=== PATIENT | female | born 1980 | race Caucasian/White ===

== ENCOUNTER 2020-02-27 21:28 | Emergency (ER) | payer MEDICAID ==
[~2020-02-27] VITALS: Ht 152.4 cm; Wt 74.4 kg
[2020-02-27 21:28] VITALS: BP 139/83
[2020-02-27] MEDS ORDERED: ONDANSETRON 4 MG ODT PO ONE (21:45)
--- NOTE | 2020-02-27 21:56 | NUR ---
EKG PERFORMED AT BEDSIDE. SINUS RHYTHM @ 75
[2020-02-27 22:02] LABS: BASOPHILS % (AUTO) 0.5 % (0.0-2.0); EOSINOPHILS # (AUTO) 0.2 K/uL (0-0.4); EOSINOPHILS % (AUTO) 2.6 % (0.0-4.0); HEMATOCRIT 39.7 % (36-48); HEMOGLOBIN 13.5 g/dL (12.0-16.0); LYMPHOCYTES # (AUTO) 2.4 K/uL (2.5-16.5); MEAN CORPUSCULAR HEMOGLOBIN 30 pg (27-31); MEAN CORPUSCULAR HGB CONC 34 g/dL (33-37); MEAN CORPUSCULAR VOLUME 87.8 fL (80-94); MONOCYTES # (AUTO) 0.4 K/uL (0.8-1.0); MONOCYTES % (AUTO) 5.8 % (1.7-9.3); NEUTROPHILS # (AUTO) 4.5 K/uL (1.8-7.7); NEUTROPHILS % (AUTO) 59.1 % (42.2-75.2); PLATELET COUNT (AUTO) 284 K/uL (140-450); RED BLOOD CELL COUNT(AUTO) 4.53 MIL/uL (4.20-5.40); RED CELL DISTRIBUTION WIDTH 13.5 % (11.6-13.7); WHITE BLOOD COUNT (AUTO) 7.5 K/uL (4.8-10.8)
[2020-02-27 22:18] LABS: ALBUMIN 3.5 g/dL (3.4-5.0); ANION GAP 11.9 (8-16); CARBON DIOXIDE 23.7 mmol/L (21-32); CREATININE 0.7 mg/dL (0.6-1.3); POTASSIUM 3.6 mmol/L (3.5-5.1); TOTAL BILIRUBIN 0.4 mg/dL (0.0-1.0)
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
--- NOTE | 2020-02-27 22:22 | NUR ---
PT RESTING IN BED IN POSITION OF COMFORT, BED LOW AND LOCKED, SIDERAILS UP, VSS, WILL CONTINUE TO MONITOR
[2020-02-27 22:28] VITALS: BP 139/83
--- NOTE | 2020-02-27 22:28 | NUR ---
DPatient discharged with v/s stable. Written and verbal after care instructions given and explained. Patient verbalized understanding. Ambulatory with steady gait. All questions addressed prior to discharge. Advised to follow up with PMD.
== END 2020-02-27 22:28 | disposition home or self-care (01) ==
LOC: MED 21:28
DX: R00.2 Palpitations (principal); R53.1 Weakness; R10.32 Left lower quadrant pain; E11.9 Type 2 diabetes mellitus without complications; F41.9 Anxiety disorder, unspecified; I10 Essential (primary) hypertension
CPT/HCPCS: 36415; 80053; 84484; 85025; 93005; 99284; Q0162

== ENCOUNTER 2021-10-28 22:20 | Emergency (ER) | payer MEDICAID ==
[~2021-10-28] VITALS: Ht 152.4 cm; Wt 73.0 kg
[2021-10-28 22:26] VITALS: BP 125/59
--- NOTE | 2021-10-28 22:26 | NUR ---
patient to bed 8
--- NOTE | 2021-10-28 23:09 | NUR ---
patient ambulated to the bathroom
[2021-10-28] MEDS ORDERED: NACL 0.9% 2,000 ML IV ONE (23:10)
[2021-10-28] MEDS ORDERED: INSULIN REGULAR, HUMAN 100 UNIT/ML VIAL IVP ONE (23:10)
--- NOTE | 2021-10-28 23:40 | NUR ---
XRAY AT BEDSIDE
--- NOTE | 2021-10-28 23:49 | NUR ---
PT USED BEDSIDE COMMODE. PT STATES SHE IS NAUSEOUS.
--- NOTE | 2021-10-28 23:53 | NUR ---
18G IV CATH IN L AC PER EMS
[2021-10-29] LABS: BASOPHILS # (AUTO) 0.2 K/uL (0.00-0.22); BASOPHILS % (AUTO) 1.3 % (0.0-2.0); EOSINOPHILS # (AUTO) 0.5 K/uL (0-0.4); HEMATOCRIT 34.1 % (36-48); HEMOGLOBIN 11.1 g/dL (12.0-16.0); LYMPHOCYTES # (AUTO) 4.6 K/uL (2.5-16.5); MEAN CORPUSCULAR HEMOGLOBIN 25 pg (27-31); MEAN CORPUSCULAR HGB CONC 33 g/dL (33-37); MEAN CORPUSCULAR VOLUME 77.8 fL (80-94); MONOCYTES # (AUTO) 0.7 K/uL (0.8-1.0); MONOCYTES % (AUTO) 6.1 % (1.7-9.3); NEUTROPHILS # (AUTO) 6.2 K/uL (1.8-7.7); NEUTROPHILS % (AUTO) 50.6 % (42.2-75.2); PLATELET COUNT (AUTO) 304 K/uL (140-450); RED BLOOD CELL COUNT(AUTO) 4.38 MIL/uL (4.20-5.40); RED CELL DISTRIBUTION WIDTH 15.1 % (11.6-13.7); WHITE BLOOD COUNT (AUTO) 12.2 K/uL (4.8-10.8)
--- NOTE | 2021-10-29 00:02 | NUR ---
ALONZO SWAB COLLECTED AND WALKED TO LAB
[2021-10-29 00:14] LABS: ACETONE, SERUM NEGATIVE (NEGATIVE)
[2021-10-29 00:20] LABS: ALBUMIN 3.7 g/dL (3.4-5.0); ANION GAP 16.7 (8-16); ASPARTATE AMINOTRANSFERASE 12 U/L (15-37); CHLORIDE 105 mmol/L (98-107); CREATININE 0.7 mg/dL (0.6-1.3); GFR ARICAN-AMERICAN 119 mL/min (>90); GLUCOSE 342 mg/dL (74-106); POTASSIUM 3.7 mmol/L (3.5-5.1); SODIUM SERUM 138 mmol/L (136-145); TOTAL BILIRUBIN 0.5 mg/dL (0.0-1.0); UREA NITROGEN, BLOOD 8 mg/dL (7-18)
--- NOTE | 2021-10-29 00:49 | NUR ---
PT RESTING IN BED. NO DISTRESS NOTED. STATES FEELS "A LITTLE BETTER" BEDSIDE COMMONDE AT BEDSIDE. SIDE RAILS UP X1
[2021-10-29 00:53] LABS: APPEARANCE,URINE CLEAR (CLEAR); BILIRUBIN,URINE NEGATIVE (NEGATIVE); BLOOD, URINE NEGATIVE (NEGATIVE); COLOR,URINE YELLOW (YELLOW); LEUKOCYTE ESTERASE ,URINE TRACE (NEGATIVE); NITRITE, URINE NEGATIVE (NEGATIVE); PH,URINE 5.5 (5.0-9.0); UGLUCOSE 3+ (NEGATIVE)
[2021-10-29 00:59] LABS: RBC,URINE 0-5 /HPF (0-5)
[2021-10-29 01:31] VITALS: BP 127/73
--- NOTE | 2021-10-29 01:31 | NUR ---
Patient discharged with v/s stable. Written and verbal after care instructions given and explained. Patient verbalized understanding. Ambulatory with steady gait. All questions addressed prior to discharge. Advised to follow up with PMD.
[2021-10-29 01:38] LABS: ANION GAP 12.3 (8-16); CARBON DIOXIDE 20.1 mmol/L (21-32); CREATININE 0.6 mg/dL (0.6-1.3); POTASSIUM 3.4 mmol/L (3.5-5.1)
--- NOTE | 2021-10-29 01:41 | NUR ---
The patient's care was reviewed and supervised by Adore Mcdnoough RN. Chart checked.
== END 2021-10-29 01:31 | disposition home or self-care (01) ==
LOC: MED 22:20
DX: E11.9 Type 2 diabetes mellitus without complications (principal); Z20.822 Contact with and (suspected) exposure to COVID-19; J45.909 Unspecified asthma, uncomplicated; F32.9 Major depressive disorder, single episode, unspecified; E78.5 Hyperlipidemia, unspecified
CPT/HCPCS: 36415; 71045; 80048; 80053; 81001; 81025; 82009; 82803; 82948; 85025; 87086; 87426; 96361; 96374; 99284; J1815; Q0092; J7030

== ENCOUNTER 2022-04-15 09:56 | Emergency (ER) | payer MEDICAID ==
[~2022-04-15] VITALS: Ht 157.5 cm; Wt 65.8 kg
[~2022-04-15 09:56] MED LIST: IBUP200C97 PO
--- NOTE | 2022-04-15 10:00 | NUR ---
Patient BIBA to bed 6.
[2022-04-15 10:05] VITALS: BP 130/70
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
--- NOTE | 2022-04-15 12:59 | NUR ---
Dr. Garza evaluating patient at bedside.
[2022-04-15] MEDS ORDERED: KETOROLAC 30 MG/ML VIAL IVP ONE (13:00)
[2022-04-15] MEDS ORDERED: ATA25 PO (13:01)
[2022-04-15] MEDS ORDERED: IBUP-2213 PO (13:01)
[2022-04-15 14:48] VITALS: BP 119/59
--- NOTE | 2022-04-15 14:48 | NUR ---
dPatient discharged with v/s stable. Written and verbal after care instructions given. Patient alert, oriented and verbalized understanding of instructions. Ambulatory with steady gait. All questions addressed prior to discharge. ID band removed. Patient advised to follow up with PMD. Rx of Atarax and Ibuprofen given. Opportunity to ask questions provided and answered.
--- NOTE | 2022-04-15 14:49 | NUR ---
Chart checked and completed. The patient's care was reviewed and supervised by Nadege Guillen RN.
== END 2022-04-15 14:48 | disposition home or self-care (01) ==
LOC: MED 09:56
DX: R07.89 Other chest pain (principal); F41.9 Anxiety disorder, unspecified; E11.9 Type 2 diabetes mellitus without complications; Z79.4 Long term (current) use of insulin; Z79.899 Other long term (current) drug therapy; Z90.49 Acquired absence of other specified parts of digestive tract; Z98.890 Other specified postprocedural states
CPT/HCPCS: 93005; 96374; 99283; J1885

== ENCOUNTER 2022-05-05 16:54 | Emergency (ER) | payer MEDICAID ==
[~2022-05-05] VITALS: Ht 149.9 cm; Wt 62.1 kg
[~2022-05-05 16:54] MED LIST changes: +ATA25 PO; +IBUP-2213 PO
[2022-05-05 17:02] VITALS: BP 131/80
[2022-05-05 18:30] LABS: BASOPHILS % (AUTO) 0.5 % (0.0-2.0); EOSINOPHILS # (AUTO) 0.1 K/uL (0-0.4); EOSINOPHILS % (AUTO) 1.3 % (0.0-4.0); HEMATOCRIT 29.9 % (36-48); LYMPHOCYTES # (AUTO) 2.8 K/uL (2.5-16.5); LYMPHOCYTES % (AUTO) 35.9 % (20.5-51.1); MEAN CORPUSCULAR HEMOGLOBIN 26 pg (27-31); MEAN CORPUSCULAR HGB CONC 33 g/dL (33-37); MONOCYTES # (AUTO) 0.4 K/uL (0.8-1.0); MONOCYTES % (AUTO) 5.4 % (1.7-9.3); NEUTROPHILS # (AUTO) 4.4 K/uL (1.8-7.7); NEUTROPHILS % (AUTO) 56.9 % (42.2-75.2); PLATELET COUNT (AUTO) 318 K/uL (140-450); RED BLOOD CELL COUNT(AUTO) 3.89 MIL/uL (4.20-5.40); RED CELL DISTRIBUTION WIDTH 16.3 % (11.6-13.7); WHITE BLOOD COUNT (AUTO) 7.8 K/uL (4.8-10.8)
[2022-05-05 18:49] LABS: ALBUMIN 3.6 g/dL (3.4-5.0); ANION GAP 11.9 (8-16); ASPARTATE AMINOTRANSFERASE 13 U/L (15-37); CHLORIDE 105 mmol/L (98-107); CREATININE 0.7 mg/dL (0.6-1.3); GFR ARICAN-AMERICAN 119 mL/min (>90); GLUCOSE 100 mg/dL (74-106); POTASSIUM 3.9 mmol/L (3.5-5.1); SODIUM SERUM 140 mmol/L (136-145); TOTAL BILIRUBIN 0.2 mg/dL (0.0-1.0); UREA NITROGEN, BLOOD 9 mg/dL (7-18)
[2022-05-05] MEDS ORDERED: ONDANSETRON 4 MG ODT PO ONE (19:10)
[2022-05-05] MEDS ORDERED: DICYCLOMINE HCL LIQUID 20 MG, ALUMINUM HYD/MAG/SIMETHICONE 30 ML, LIDOCAINE VISCOUS 2% ... PO ONE ×3 (19:10)
[2022-05-05] MEDS ORDERED: FAMO-90 PO (19:42)
[2022-05-05] MEDS ORDERED: ONDA-188 SL (19:42)
--- NOTE | 2022-05-05 21:10 | NUR ---
Note maximilian in ED - 05/05/22 at 2309 by [id number] Patient is A/Ox4, resting comfortably in bed, chest rise and fall symmetrical, no s/s of distress.
--- NOTE | 2022-05-05 21:54 | NUR ---
PT TO BED #9
--- NOTE | 2022-05-05 22:20 | NUR ---
Patient is A/Ox4, resting comfortably in bed, chest rise and fall symmetrical, no s/s of distress.
[2022-05-05] MEDS ORDERED: DICYCLOMINE HCL LIQUID 10 MG/5 ML UDC PO ONE (22:55)
[2022-05-05] MEDS ORDERED: ONDANSETRON 4 MG ODT ONE (22:56)
[2022-05-05] MEDS ORDERED: ALUMINUM HYD/MAG/SIMETHICONE 30 ML UDC ONE (23:00)
--- NOTE | 2022-05-05 23:00 | NUR ---
Patient is A/Ox4, resting comfortably in bed, chest rise and fall symmetrical, no s/s of distress.
[2022-05-05 23:06] VITALS: BP 129/75
== END 2022-05-05 23:09 | disposition home or self-care (01) ==
LOC: MED 16:54
DX: K29.70 Gastritis, unspecified, without bleeding (principal); R07.89 Other chest pain
CPT/HCPCS: 36415; 71045; 80053; 83690; 84484; 85025; 93005; 99285; Q0162

== ENCOUNTER 2022-07-15 17:41 | Emergency (ER) | payer MEDICAID ==
[~2022-07-15] VITALS: Ht 152.4 cm; Wt 64.9 kg
[~2022-07-15 17:41] MED LIST changes: +FAMO-90 PO; +ONDA-188 SL
[2022-07-15 17:52] VITALS: BP 143/70
[2022-07-15] MEDS ORDERED: PROCHLORPERAZINE 10 MG/2 ML VIAL IM ONE (19:10)
[2022-07-15] MEDS ORDERED: IBUPROFEN 600 MG TAB PO ONE (19:10)
--- NOTE | 2022-07-15 19:38 | NUR ---
PT AMBUALTED TO BED #5
--- NOTE | 2022-07-15 20:00 | NUR ---
PT IS FOR THE HEADACHE AND NAUSEA. SHE IS AMBULATORY AND ROOM AIR. SHE IS WAITING FOR THE DR ORDERS.
[2022-07-15] MEDS ORDERED: IBUP-2213 PO (20:10)
[2022-07-16 01:19] VITALS: BP 143/70
--- NOTE | 2022-07-16 01:20 | NUR ---
PT LEFT WITH HIS BELONGINGS
--- NOTE | 2022-07-16 01:21 | NUR ---
PT LEFT HER BELONIGINGS
== END 2022-07-16 01:19 | disposition home or self-care (01) ==
LOC: MED 17:41
DX: R51.9 Headache, unspecified (principal); R11.0 Nausea; E11.9 Type 2 diabetes mellitus without complications; Z79.899 Other long term (current) drug therapy
CPT/HCPCS: 81025; 96372; 99283; J0780; Q0163

== ENCOUNTER 2022-10-08 17:06 | Emergency (ER) | payer MEDICAID ==
[~2022-10-08] VITALS: Ht 157.5 cm; Wt 70.3 kg
--- NOTE | 2022-10-08 17:09 | NUR ---
Patient BIBA to bed 2.
[2022-10-08 17:12] VITALS: BP 121/75
--- NOTE | 2022-10-08 17:35 | NUR ---
RESTING IN BED, CP RELIEVED, NOW HAS ABDOMINAL PAIN
[2022-10-08] MEDS ORDERED: ALUMINUM HYD/MAG/SIMETHICONE 30 ML UDC PO ONE (17:55)
[2022-10-08 18:08] LABS: BASOPHILS % (AUTO) 0.6 % (0.0-2.0); EOSINOPHILS # (AUTO) 0.4 K/uL (0-0.4); EOSINOPHILS % (AUTO) 4.7 % (0.0-4.0); HEMATOCRIT 32.2 % (36-48); HEMOGLOBIN 10.7 g/dL (12.0-16.0); LYMPHOCYTES # (AUTO) 2.5 K/uL (2.5-16.5); LYMPHOCYTES % (AUTO) 31.5 % (20.5-51.1); MEAN CORPUSCULAR HEMOGLOBIN 27 pg (27-31); MEAN CORPUSCULAR HGB CONC 33 g/dL (33-37); MEAN CORPUSCULAR VOLUME 80.8 fL (80-94); MONOCYTES # (AUTO) 0.5 K/uL (0.8-1.0); MONOCYTES % (AUTO) 5.7 % (1.7-9.3); NEUTROPHILS # (AUTO) 4.6 K/uL (1.8-7.7); NEUTROPHILS % (AUTO) 57.5 % (42.2-75.2); PLATELET COUNT (AUTO) 295 K/uL (140-450); RED BLOOD CELL COUNT(AUTO) 3.98 MIL/uL (4.20-5.40); RED CELL DISTRIBUTION WIDTH 16.5 % (11.6-13.7)
[2022-10-08 18:29] LABS: ALBUMIN 3.6 g/dL (3.4-5.0); ANION GAP 12.7 (8-16); ASPARTATE AMINOTRANSFERASE 20 U/L (15-37); CARBON DIOXIDE 22.6 mmol/L (21-32); CHLORIDE 107 mmol/L (98-107); CREATININE 0.7 mg/dL (0.6-1.3); GFR ARICAN-AMERICAN 119 mL/min (>90); GLUCOSE 136 mg/dL (74-106); POTASSIUM 3.3 mmol/L (3.5-5.1); SODIUM SERUM 139 mmol/L (136-145); TOTAL BILIRUBIN 0.4 mg/dL (0.0-1.0); UREA NITROGEN, BLOOD 9 mg/dL (7-18)
--- NOTE | 2022-10-08 19:02 | NUR ---
RESTING IN BED, PAIN RESOLVING
[2022-10-08] MEDS ORDERED: ALUM355S59 PO (20:51)
[2022-10-08] MEDS ORDERED: FAMO-90 PO (20:51)
[2022-10-08] MEDS ORDERED: ACET-10509 PO (20:51)
--- NOTE | 2022-10-08 20:58 | NUR ---
IV removed, catheter intact and site benign. Applied folded 4x4 gauze and tape to stop bleeding.
[2022-10-08 21:00] VITALS: BP 122/62
--- NOTE | 2022-10-08 21:00 | NUR ---
Patient discharged with v/s stable. Written and verbal after care instructions given and explained. Patient alert, oriented and verbalized understanding of instructions. Ambulatory with steady gait. All questions addressed prior to discharge. ID band removed. Patient advised to follow up with PMD. Rx of TYLENOL, MAALOX, PEPCID given. Patient educated on indication of medication including possible reaction and side effects. Opportunity to ask questions provided and answered.
== END 2022-10-08 21:00 | disposition home or self-care (01) ==
LOC: MED 17:06
DX: R07.9 Chest pain, unspecified (principal); K21.9 Gastro-esophageal reflux disease without esophagitis; E11.9 Type 2 diabetes mellitus without complications; Z79.899 Other long term (current) drug therapy; Z79.1 Long term (current) use of non-steroidal anti-inflammatories (NSAID)
CPT/HCPCS: 36415; 71045; 80053; 81025; 83690; 84484; 85025; 85379; 93005; 99285; Q0092

== ENCOUNTER 2022-10-27 16:10 | Emergency (ER) | payer MEDICAID ==
[~2022-10-27] VITALS: Ht 152.4 cm; Wt 68.5 kg
[~2022-10-27 16:10] MED LIST changes: +ACET-10509 PO; +ALUM355S59 PO
[2022-10-27 16:26] VITALS: BP 144/111
[2022-10-27] MEDS ORDERED: KETOROLAC 30 MG/ML VIAL IVP ONE (16:40)
[2022-10-27] MEDS ORDERED: ONDANSETRON 4 MG ODT PO ONE (16:40)
[2022-10-27] MEDS ORDERED: NACL 0.9% 1,000 ML IV SCH (16:40)
[2022-10-27] MEDS ORDERED: NACL 0.9% 1,000 ML IV ONE ×2 (16:40→17:15)
[2022-10-27 16:56] LABS: BASOPHILS % (AUTO) 0.3 % (0.0-2.0); EOSINOPHILS # (AUTO) 0.2 K/uL (0-0.4); EOSINOPHILS % (AUTO) 3.5 % (0.0-4.0); HEMATOCRIT 32.3 % (36-48); HEMOGLOBIN 10.7 g/dL (12.0-16.0); LYMPHOCYTES # (AUTO) 0.7 K/uL (2.5-16.5); LYMPHOCYTES % (AUTO) 10.1 % (20.5-51.1); MEAN CORPUSCULAR HEMOGLOBIN 27 pg (27-31); MEAN CORPUSCULAR HGB CONC 33 g/dL (33-37); MONOCYTES # (AUTO) 0.3 K/uL (0.8-1.0); MONOCYTES % (AUTO) 4.2 % (1.7-9.3); NEUTROPHILS # (AUTO) 5.8 K/uL (1.8-7.7); NEUTROPHILS % (AUTO) 81.9 % (42.2-75.2); PLATELET COUNT (AUTO) 272 K/uL (140-450); RED BLOOD CELL COUNT(AUTO) 3.99 MIL/uL (4.20-5.40); RED CELL DISTRIBUTION WIDTH 16.1 % (11.6-13.7); WHITE BLOOD COUNT (AUTO) 7.1 K/uL (4.8-10.8)
--- NOTE | 2022-10-27 17:10 | NUR ---
42 y/o female bib self c/o abdominal pain x 3 hours. Patient has nausea and vomiting. Denies any new foods or sick contacts. Patient reports bone pain and weakness. Denies any diarrhea or constipation. Denies taking any medication prior to arrival. Medical History: Denies NKDA
[2022-10-27] MEDS ORDERED: ONDANSETRON 4 MG/2 ML VIAL IVP ONE (17:15)
[2022-10-27 17:29] LABS: ALBUMIN 3.3 g/dL (3.4-5.0); ANION GAP 10.7 (8-16); CARBON DIOXIDE 24.7 mmol/L (21-32); CREATININE 0.7 mg/dL (0.6-1.3); POTASSIUM 4.4 mmol/L (3.5-5.1); TOTAL BILIRUBIN 0.5 mg/dL (0.0-1.0)
[2022-10-27 17:38] LABS: APPEARANCE,URINE CLEAR (CLEAR); BILIRUBIN,URINE NEGATIVE (NEGATIVE); BLOOD, URINE 3+ (NEGATIVE); COLOR,URINE YELLOW (YELLOW); LEUKOCYTE ESTERASE ,URINE NEGATIVE (NEGATIVE); NITRITE, URINE NEGATIVE (NEGATIVE); UGLUCOSE 1+ (NEGATIVE)
[2022-10-27 17:50] LABS: RBC,URINE 20-50 /HPF (0-5); TRICHOMONAS,URINE None Seen /HPF (None Seen); YEAST,URINE None Seen /HPF (None Seen)
--- NOTE | 2022-10-27 18:02 | NUR ---
Patient was taken to CT via wheelchair.
--- NOTE | 2022-10-27 18:32 | NUR ---
The patient's care was reviewed and supervised by RADHA MILLER RN.
[2022-10-27] MEDS ORDERED: ONDA-188 PO (19:08)
[2022-10-27] MEDS ORDERED: ACET-10509 PO (19:08)
--- NOTE | 2022-10-27 19:27 | NUR ---
Report given to MARIELY Noel for transfer of care.
[2022-10-27 19:40] VITALS: BP 144/111
--- NOTE | 2022-10-27 19:40 | NUR ---
Patient discharged with v/s stable. Written and verbal after care instructions given and explained. Patient alert, oriented and verbalized understanding of instructions. Ambulatory with steady gait. All questions addressed prior to discharge. ID band removed. Patient advised to follow up with PMD. Rx of TYLENOL AND ZOFRAN given. Patient educated on indication of medication including possible reaction and side effects. Opportunity to ask questions provided and answered.
== END 2022-10-27 19:40 | disposition home or self-care (01) ==
LOC: MED 16:10
DX: R10.84 Generalized abdominal pain (principal); Z20.822 Contact with and (suspected) exposure to COVID-19; R11.10 Vomiting, unspecified; Z79.899 Other long term (current) drug therapy
CPT/HCPCS: 36415; 74176; 80053; 81001; 81025; 83690; 84484; 85025; 87426; 87804; 93005; 96361; 96374; 96375; 99285; J1885; J2405; J7030

== ENCOUNTER 2022-11-08 15:29 | Emergency (ER) | payer MEDICAID ==
[~2022-11-08] VITALS: Ht 152.4 cm; Wt 68.0 kg
[~2022-11-08 15:29] MED LIST changes: +ONDA-188 PO
[2022-11-08 16:04] VITALS: BP 129/73
[2022-11-08] MEDS ORDERED: PROCHLORPERAZINE 10 MG/2 ML VIAL IVP ONE (16:40)
[2022-11-08] MEDS ORDERED: KETOROLAC 15 MG/ML VIAL IVP ONE (16:40)
[2022-11-08] MEDS ORDERED: NACL 0.9% 1,000 ML IV ONE (16:40)
[2022-11-08] MEDS ORDERED: diphenhydrAMINE 50 MG/ML VIAL IVP ONE (16:40)
[2022-11-08] MEDS ORDERED: ONDANSETRON 4 MG ODT PO ONE (17:25)
[2022-11-08] MEDS ORDERED: KETOROLAC 30 MG/ML VIAL IM ONE (17:25)
[2022-11-08] MEDS ORDERED: ONDA-188 SL (17:49)
[2022-11-08] MEDS ORDERED: IBUP-2218 PO (17:49)
[2022-11-08 18:12] VITALS: BP 125/78
--- NOTE | 2022-11-08 18:12 | NUR ---
Patient discharged with v/s stable. Written and verbal after care instructions given. Patient alert, oriented and verbalized understanding of instructions. Ambulatory with steady gait. All questions addressed prior to discharge. ID band removed. Patient advised to follow up with PMD. Rx of Iburpfoen and Zofran given. Opportunity to ask questions provided and answered.
== END 2022-11-08 18:12 | disposition home or self-care (01) ==
LOC: MED 15:29
DX: R51.9 Headache, unspecified (principal); R11.0 Nausea; R07.0 Pain in throat; E11.9 Type 2 diabetes mellitus without complications; Z79.899 Other long term (current) drug therapy; Z79.1 Long term (current) use of non-steroidal anti-inflammatories (NSAID)
CPT/HCPCS: 70450; 82948; 96372; 99285; J1885; Q0162

== ENCOUNTER 2023-02-11 23:09 | Emergency (ER) | payer MEDICAID ==
[~2023-02-11] VITALS: Ht 152.4 cm; Wt 72.6 kg
[~2023-02-11 23:09] MED LIST changes: +IBUP-2218 PO
[2023-02-12 00:40] VITALS: BP 131/69; PULSE 95; RESP 20; TEMP 97.1
[2023-02-12 02:30] VITALS: BP 131/69; PULSE 95; RESP 20; TEMP 97.1
== END 2023-02-12 02:30 | disposition left against medical advice (07) ==
LOC: MED 23:09
DX: R07.9 Chest pain, unspecified (principal); Z53.21 Procedure and treatment not carried out due to patient leaving prior to being seen by health care provider
CPT/HCPCS: 82948; 93005; 99281

== ENCOUNTER 2023-03-11 21:29 | Emergency (ER) | payer MEDICAID ==
[~2023-03-11] VITALS: Ht 152.4 cm; Wt 72.6 kg
[2023-03-11 21:34] VITALS: BP 132/78; PULSE 98; RESP 16; TEMP 98.4; O2SAT 98
[2023-03-11 21:52] LABS: BASOPHILS % (AUTO) 0.5 % (0.0-2.0); EOSINOPHILS # (AUTO) 0.2 K/uL (0-0.4); EOSINOPHILS % (AUTO) 2.2 % (0.0-4.0); HEMATOCRIT 30.1 % (36-48); HEMOGLOBIN 9.8 g/dL (12.0-16.0); LYMPHOCYTES # (AUTO) 3.1 K/uL (2.5-16.5); LYMPHOCYTES % (AUTO) 36.2 % (20.5-51.1); MEAN CORPUSCULAR HEMOGLOBIN 25 pg (27-31); MEAN CORPUSCULAR HGB CONC 33 g/dL (33-37); MEAN CORPUSCULAR VOLUME 77.1 fL (80-94); MONOCYTES # (AUTO) 0.6 K/uL (0.8-1.0); MONOCYTES % (AUTO) 7.2 % (1.7-9.3); NEUTROPHILS # (AUTO) 4.7 K/uL (1.8-7.7); NEUTROPHILS % (AUTO) 53.9 % (42.2-75.2); PLATELET COUNT (AUTO) 344 K/uL (140-450); RED CELL DISTRIBUTION WIDTH 15.7 % (11.6-13.7); WHITE BLOOD COUNT (AUTO) 8.6 K/uL (4.8-10.8)
[2023-03-11 22:02] LABS: ANION GAP 11.4 (8-16); CALCIUM 8.6 mg/dL (8.5-10.1); CARBON DIOXIDE 25.1 mmol/L (21-32); CREATININE 0.8 mg/dL (0.6-1.3); POTASSIUM 3.5 mmol/L (3.5-5.1)
[2023-03-11] MEDS ORDERED: KETOROLAC 30 MG/ML VIAL IM ONE (23:30)
[2023-03-11 23:50] LABS: AMPHETAMINE, URINE NEGATIVE ng/ml (NEG <=1000); BARBITURATE, URINE NEGATIVE ng/ml (NEG <=200); BENZODIAZEPINE, URINE NEGATIVE ng/mL (NEG <=200); CANNABINOID, URINE NEGATIVE ng/mL (NEG <=50); COCAINE, URINE NEGATIVE ng/mL (NEG <=300); PHENCYCLIDINE SCREEN,URINE NEGATIVE ng/mL (NEG <=25)
[2023-03-11 23:51] LABS: OPIATE, URINE NEGATIVE ng/mL (NEG <=2000)
[2023-03-12] MEDS ORDERED: NAPR-54 PO (00:11)
[2023-03-12 00:30] VITALS: BP 105/60; PULSE 91; RESP 16; O2SAT 100
== END 2023-03-12 00:30 | disposition home or self-care (01) ==
LOC: MED 21:29
DX: R07.89 Other chest pain (principal); M25.512 Pain in left shoulder; E11.9 Type 2 diabetes mellitus without complications; Z79.4 Long term (current) use of insulin; Z79.899 Other long term (current) drug therapy
CPT/HCPCS: 36415; 71045; 80048; 80305; 81025; 84484; 85025; 93005; 96372; 99285; J1885

== ENCOUNTER 2023-03-17 14:08 | Emergency (ER) | payer MEDICAID ==
[~2023-03-17] VITALS: Ht 152.4 cm; Wt 72.6 kg
[~2023-03-17 14:08] MED LIST changes: +NAPR-54 PO
[2023-03-17 14:28] VITALS: BP 148/77; PULSE 78; RESP 15; TEMP 97.8; O2SAT 100
[2023-03-17] MEDS ORDERED: ACETAMINOPHEN 325 MG TAB PO ONE (15:20)
[2023-03-17] MEDS ORDERED: KETOROLAC 30 MG/ML VIAL IM ONE (15:20)
[2023-03-17 15:46] LABS: BASOPHILS % (AUTO) 0.4 % (0.0-2.0); EOSINOPHILS # (AUTO) 0.2 K/uL (0-0.4); EOSINOPHILS % (AUTO) 2.6 % (0.0-4.0); HEMATOCRIT 31.2 % (36-48); LYMPHOCYTES # (AUTO) 2.4 K/uL (2.5-16.5); LYMPHOCYTES % (AUTO) 34.1 % (20.5-51.1); MEAN CORPUSCULAR HEMOGLOBIN 25 pg (27-31); MEAN CORPUSCULAR HGB CONC 32 g/dL (33-37); MEAN CORPUSCULAR VOLUME 76.8 fL (80-94); MONOCYTES # (AUTO) 0.3 K/uL (0.8-1.0); MONOCYTES % (AUTO) 4.5 % (1.7-9.3); NEUTROPHILS # (AUTO) 4.1 K/uL (1.8-7.7); NEUTROPHILS % (AUTO) 58.4 % (42.2-75.2); PLATELET COUNT (AUTO) 378 K/uL (140-450); RED BLOOD CELL COUNT(AUTO) 4.06 MIL/uL (4.20-5.40); RED CELL DISTRIBUTION WIDTH 15.3 % (11.6-13.7); WHITE BLOOD COUNT (AUTO) 7.1 K/uL (4.8-10.8)
[2023-03-17] MEDS ORDERED: KETOROLAC 15 MG/ML VIAL ONE (16:31)
[2023-03-17 16:32] LABS: ALANINE AMINOTRANSFERASE 23 U/L (12-78); ALBUMIN 3.6 g/dL (3.4-5.0); ALKALINE PHOSPHATASE 77 U/L (50-136); ASPARTATE AMINOTRANSFERASE 12 U/L (15-37); CALCIUM 8.9 mg/dL (8.5-10.1); CHLORIDE 107 mmol/L (98-107); CREATININE 0.6 mg/dL (0.6-1.3); GFR ARICAN-AMERICAN 142 mL/min (>90); GFR NON ARICAN-AMERICAN 117 mL/min (>90); GLUCOSE 170 mg/dL (74-106); SODIUM SERUM 138 mmol/L (136-145); TOTAL BILIRUBIN 0.3 mg/dL (0.0-1.0); TOTAL PROTEIN, SERUM 7.4 g/dL (6.4-8.2); UREA NITROGEN, BLOOD 8 mg/dL (7-18)
[2023-03-17] MEDS ORDERED: ACETAMINOPHEN 325 MG TAB ONE (16:33)
[2023-03-17] MEDS ORDERED: IBUP-2213 PO (16:46)
[2023-03-17 16:55] VITALS: BP 145/76; PULSE 75; RESP 18; TEMP 97.8; O2SAT 100
== END 2023-03-17 16:55 | disposition home or self-care (01) ==
LOC: MED 14:08
DX: R07.2 Precordial pain (principal); R06.02 Shortness of breath; E11.9 Type 2 diabetes mellitus without complications; Z79.899 Other long term (current) drug therapy
CPT/HCPCS: 36415; 71045; 80053; 81025; 84484; 85025; 93005; 96372; 99285; J1885

== ENCOUNTER 2023-04-03 20:39 | Emergency (ER) | payer MEDICAID ==
[~2023-04-03] VITALS: Ht 152.4 cm; Wt 72.6 kg
[2023-04-03 20:55] VITALS: BP 138/77; PULSE 92; RESP 16; TEMP 97.4; O2SAT 100
[2023-04-03 21:30] VITALS: O2SAT 100
[2023-04-03] MEDS ORDERED: NACL 0.9% 1,000 ML IV ONE (21:30)
[2023-04-03 21:40] LABS: BASOPHILS % (AUTO) 0.6 % (0.0-2.0); EOSINOPHILS # (AUTO) 0.2 K/uL (0-0.4); EOSINOPHILS % (AUTO) 2.7 % (0.0-4.0); HEMOGLOBIN 10.2 g/dL (12.0-16.0); LYMPHOCYTES # (AUTO) 2.5 K/uL (2.5-16.5); LYMPHOCYTES % (AUTO) 33.1 % (20.5-51.1); MEAN CORPUSCULAR HEMOGLOBIN 25 pg (27-31); MEAN CORPUSCULAR HGB CONC 33 g/dL (33-37); MEAN CORPUSCULAR VOLUME 74.9 fL (80-94); MONOCYTES # (AUTO) 0.5 K/uL (0.8-1.0); MONOCYTES % (AUTO) 6.5 % (1.7-9.3); NEUTROPHILS # (AUTO) 4.3 K/uL (1.8-7.7); NEUTROPHILS % (AUTO) 57.1 % (42.2-75.2); PLATELET COUNT (AUTO) 328 K/uL (140-450); RED BLOOD CELL COUNT(AUTO) 4.14 MIL/uL (4.20-5.40); RED CELL DISTRIBUTION WIDTH 15.9 % (11.6-13.7); WHITE BLOOD COUNT (AUTO) 7.4 K/uL (4.8-10.8)
[2023-04-03 21:56] LABS: ALANINE AMINOTRANSFERASE 18 U/L (12-78); ALBUMIN 3.6 g/dL (3.4-5.0); ALKALINE PHOSPHATASE 93 U/L (50-136); ANION GAP 12.3 (8-16); ASPARTATE AMINOTRANSFERASE 10 U/L (15-37); CALCIUM 8.8 mg/dL (8.5-10.1); CARBON DIOXIDE 26.8 mmol/L (21-32); CHLORIDE 103 mmol/L (98-107); CREATININE 0.9 mg/dL (0.6-1.3); GFR ARICAN-AMERICAN 89 mL/min (>90); GFR NON ARICAN-AMERICAN 73 mL/min (>90); POTASSIUM 4.1 mmol/L (3.5-5.1); SODIUM SERUM 138 mmol/L (136-145); TOTAL BILIRUBIN 0.3 mg/dL (0.0-1.0); TOTAL PROTEIN, SERUM 7.4 g/dL (6.4-8.2); UREA NITROGEN, BLOOD 10 mg/dL (7-18)
[2023-04-03 21:57] LABS: GLUCOSE 424 mg/dL (74-106)
[2023-04-03] MEDS ORDERED: INSULIN REGULAR, HUMAN 100 UNIT/ML VIAL IVP ONE (22:00)
[2023-04-03 23:11] LABS: APPEARANCE,URINE CLEAR (CLEAR); BILIRUBIN,URINE NEGATIVE (NEGATIVE); BLOOD, URINE NEGATIVE (NEGATIVE); COLOR,URINE YELLOW (YELLOW); LEUKOCYTE ESTERASE ,URINE NEGATIVE (NEGATIVE); NITRITE, URINE NEGATIVE (NEGATIVE); PH,URINE 7.5 (5.0-9.0); PROTEIN,URINE NEGATIVE (NEGATIVE); UGLUCOSE 3+ (NEGATIVE)
== END 2023-04-04 00:44 | disposition home or self-care (01) ==
LOC: MED 20:39
DX: E11.65 Type 2 diabetes mellitus with hyperglycemia (principal); R00.2 Palpitations; Z79.4 Long term (current) use of insulin; Z79.899 Other long term (current) drug therapy
CPT/HCPCS: 36415; 80053; 81003; 82948; 84484; 85025; 93005; 96361; 96374; 99284; J1815; J7030

== ENCOUNTER 2023-07-17 15:11 | Emergency (ER) | payer MEDICAID ==
[~2023-07-17] VITALS: Ht 152.4 cm; Wt 72.6 kg
[2023-07-17 15:19] VITALS: BP 127/79; PULSE 103; RESP 20; TEMP 98.2; O2SAT 98
[2023-07-17 15:46] LABS: BASOPHILS # (AUTO) 0.1 K/uL (0.00-0.22); BASOPHILS % (AUTO) 0.7 % (0.0-2.0); EOSINOPHILS # (AUTO) 0.1 K/uL (0-0.4); EOSINOPHILS % (AUTO) 1.1 % (0.0-4.0); HEMATOCRIT 33.3 % (36-48); HEMOGLOBIN 10.9 g/dL (12.0-16.0); LYMPHOCYTES # (AUTO) 2.1 K/uL (2.5-16.5); LYMPHOCYTES % (AUTO) 25.8 % (20.5-51.1); MEAN CORPUSCULAR HEMOGLOBIN 25 pg (27-31); MEAN CORPUSCULAR HGB CONC 33 g/dL (33-37); MEAN CORPUSCULAR VOLUME 76.6 fL (80-94); MONOCYTES # (AUTO) 0.5 K/uL (0.8-1.0); MONOCYTES % (AUTO) 5.8 % (1.7-9.3); NEUTROPHILS # (AUTO) 5.5 K/uL (1.8-7.7); NEUTROPHILS % (AUTO) 66.6 % (42.2-75.2); PLATELET COUNT (AUTO) 302 K/uL (140-450); RED BLOOD CELL COUNT(AUTO) 4.35 MIL/uL (4.20-5.40); RED CELL DISTRIBUTION WIDTH 17.7 % (11.6-13.7); WHITE BLOOD COUNT (AUTO) 8.2 K/uL (4.8-10.8)
[2023-07-17 16:05] LABS: ANION GAP 13.4 (8-16); CALCIUM 8.4 mg/dL (8.5-10.1); CARBON DIOXIDE 24.7 mmol/L (21-32); CREATININE 0.8 mg/dL (0.6-1.3); POTASSIUM 4.1 mmol/L (3.5-5.1)
[2023-07-17 16:44] LABS: INR 0.96 (0.8-1.2); PROTHROMBIN TIME 10.1 secs (10.8-13.4)
[2023-07-17 18:31] VITALS: BP 117/64; PULSE 92; RESP 18; TEMP 97.1; O2SAT 100
== END 2023-07-17 18:31 | disposition home or self-care (01) ==
LOC: MED 15:11
DX: R07.9 Chest pain, unspecified (principal); E11.65 Type 2 diabetes mellitus with hyperglycemia; F41.9 Anxiety disorder, unspecified; Z79.899 Other long term (current) drug therapy; Z79.1 Long term (current) use of non-steroidal anti-inflammatories (NSAID)
CPT/HCPCS: 36415; 71045; 80048; 81025; 83880; 84484; 85025; 85379; 85610; 85730; 93005; 99285

== ENCOUNTER 2023-10-04 20:31 | Emergency (ER) | payer MEDICAID ==
[~2023-10-04] VITALS: Ht 152.4 cm; Wt 72.6 kg
[~2023-10-04 20:31] MED LIST changes: +NAPR-337 PO; -NAPR-54 PO
[2023-10-04 20:43] VITALS: BP 125/76; PULSE 121; RESP 16; TEMP 98; O2SAT 98
[2023-10-04] MEDS: NACL 0.9% 1,000 ML IV ONE (22:21)
[2023-10-04 23:55] LABS: BASOPHILS % (AUTO) 0.6 % (0.0-2.0); EOSINOPHILS # (AUTO) 0.4 K/uL (0-0.4); EOSINOPHILS % (AUTO) 5.3 % (0.0-4.0); HEMATOCRIT 31.7 % (36-48); HEMOGLOBIN 10.8 g/dL (12.0-16.0); LYMPHOCYTES % (AUTO) 37.8 % (20.5-51.1); MEAN CORPUSCULAR HEMOGLOBIN 28 pg (27-31); MEAN CORPUSCULAR HGB CONC 34 g/dL (33-37); MEAN CORPUSCULAR VOLUME 81.7 fL (80-94); MONOCYTES # (AUTO) 0.5 K/uL (0.8-1.0); MONOCYTES % (AUTO) 6.4 % (1.7-9.3); NEUTROPHILS # (AUTO) 3.9 K/uL (1.8-7.7); NEUTROPHILS % (AUTO) 49.9 % (42.2-75.2); PLATELET COUNT (AUTO) 300 K/uL (140-450); RED BLOOD CELL COUNT(AUTO) 3.88 MIL/uL (4.20-5.40); RED CELL DISTRIBUTION WIDTH 18.1 % (11.6-13.7); WHITE BLOOD COUNT (AUTO) 7.8 K/uL (4.8-10.8)
[2023-10-05 00:06] LABS: ANION GAP 5.1 (8-16); CALCIUM 7.9 mg/dL (8.5-10.1); CARBON DIOXIDE 24.5 mmol/L (21-32); CREATININE 0.5 mg/dL (0.6-1.3); POTASSIUM 3.6 mmol/L (3.5-5.1)
[2023-10-05 01:43] VITALS: BP 125/76; PULSE 98; RESP 16; TEMP 98; O2SAT 98
== END 2023-10-05 01:43 | disposition home or self-care (01) ==
LOC: MED 20:31
DX: R07.89 Other chest pain (principal); E11.9 Type 2 diabetes mellitus without complications; Z79.4 Long term (current) use of insulin; Z79.899 Other long term (current) drug therapy
CPT/HCPCS: 36415; 71045; 80048; 81002; 81025; 84484; 85025; 93005; 96360; 99285; J7030; Q0092

== ENCOUNTER 2024-04-05 22:29 | Emergency (ER) | payer MEDICAID ==
[~2024-04-05] VITALS: Ht 152.4 cm; Wt 72.6 kg
[~2024-04-05 22:29] MED LIST changes: -ACET-10509 PO; +ACET500T99 PO
[2024-04-05 22:34] VITALS: BP 139/85; PULSE 79; RESP 18; TEMP 98.2; O2SAT 99
[2024-04-05 22:57] VITALS: BP 139/85; PULSE 79; RESP 18; TEMP 98.2; O2SAT 98
[2024-04-05] MEDS: KETOROLAC 60 MG/2 ML VIAL IM ONE (23:40)
[2024-04-05] MEDS: ONDANSETRON 4 MG ODT PO ONE (23:41)
[2024-04-05] MEDS ORDERED: ONDA8TAB87 PO (23:48)
== END 2024-04-05 23:52 | disposition home or self-care (01) ==
LOC: MED 22:29
DX: F41.9 Anxiety disorder, unspecified (principal); R11.2 Nausea with vomiting, unspecified; R51.9 Headache, unspecified; R42 Dizziness and giddiness; J45.909 Unspecified asthma, uncomplicated; E11.9 Type 2 diabetes mellitus without complications; Z90.49 Acquired absence of other specified parts of digestive tract; Z98.890 Other specified postprocedural states; Z79.899 Other long term (current) drug therapy
CPT/HCPCS: 81025; 82948; 93005; 96372; 99283; J1885; Q0162

== ENCOUNTER 2024-04-11 12:51 | Emergency (ER) | payer MEDICAID ==
[~2024-04-11] VITALS: Ht 152.4 cm; Wt 72.6 kg
[~2024-04-11 12:51] MED LIST changes: +ONDA8TAB87 PO
[2024-04-11 12:56] VITALS: BP 145/80; PULSE 90; RESP 18; TEMP 97.3; O2SAT 99
[2024-04-11 14:14] LABS: BASOPHILS % (AUTO) 0.4 % (0.0-2.0); EOSINOPHILS # (AUTO) 0.1 K/uL (0-0.4); EOSINOPHILS % (AUTO) 1.4 % (0.0-4.0); HEMOGLOBIN 11.6 g/dL (12.0-16.0); LYMPHOCYTES # (AUTO) 2.1 K/uL (2.5-16.5); LYMPHOCYTES % (AUTO) 26.4 % (20.5-51.1); MEAN CORPUSCULAR HEMOGLOBIN 26 pg (27-31); MEAN CORPUSCULAR HGB CONC 33 g/dL (33-37); MEAN CORPUSCULAR VOLUME 79.6 fL (80-94); MONOCYTES # (AUTO) 0.5 K/uL (0.8-1.0); NEUTROPHILS # (AUTO) 5.2 K/uL (1.8-7.7); NEUTROPHILS % (AUTO) 65.8 % (42.2-75.2); PLATELET COUNT (AUTO) 264 K/uL (140-450); RED CELL DISTRIBUTION WIDTH 16.5 % (11.6-13.7); WHITE BLOOD COUNT (AUTO) 7.9 K/uL (4.8-10.8)
[2024-04-11 14:31] LABS: ANION GAP 11.5 (8-16); CARBON DIOXIDE 26.3 mmol/L (21-32); POTASSIUM 3.8 mmol/L (3.5-5.1)
[2024-04-11 15:06] LABS: CREATININE 0.8 mg/dL (0.6-1.3)
[2024-04-11 15:25] VITALS: BP 110/67; PULSE 90; RESP 16; TEMP 98; O2SAT 99
== END 2024-04-11 15:26 | disposition home or self-care (01) ==
LOC: MED 12:51
DX: E11.65 Type 2 diabetes mellitus with hyperglycemia (principal); R07.9 Chest pain, unspecified; R03.0 Elevated blood-pressure reading, without diagnosis of hypertension; J45.909 Unspecified asthma, uncomplicated; F32.9 Major depressive disorder, single episode, unspecified; F41.9 Anxiety disorder, unspecified; Z79.899 Other long term (current) drug therapy
CPT/HCPCS: 36415; 71045; 80048; 82803; 82948; 83880; 84484; 85025; 93005; 99285; Q0092